=== PATIENT | female | born 1980 | race Caucasian/White ===

== ENCOUNTER → 2018-04-01 14:45 | Outpatient (CLI) | payer BC, SELFPAY ==
[2018-04-06 11:04] LABS: HPV Reflexed? NOT INDICATED
== END ==
PROVIDERS: Visit Provider Obstetrics & Gynecology
DX: Z12.4 Encounter for screening for malignant neoplasm of cervix (principal)
CPT/HCPCS: 88175; G0145

== ENCOUNTER 2018-10-29 06:02 | Day surgery (SDC) | payer BC, SELFPAY ==
--- NOTE | 2018-10-25 19:35 | PCM.HP.STD ---
History of Present Illness Date of Admission: 10/29/18 Chief Complaint: requests sterilization The patient is a 38 year old F who desires sterilization. Extensive discussions of regret with sterilization, rates of successful reversal, other contraceptive options and side effects. Past Medical History Allergies No Known Allergies Allergy (Verified 10/25/18 09:01) Home Medications: Ambulatory Orders Medication Instructions Recorded Valacyclovir HCl [Valacyclovir] 1 tab PO PRN PRN 08/06/13 Naproxen [Naprosyn] 500 mg PO BID PRN PRN 10/25/18 Smoking Status: Never smoker Tobacco Use: Non-smoker Review of Systems Constitutional: Denies: Chills, Fever, Weight Change HEENT: Denies: Difficulty Hearing, Difficulty Swallowing, Nasal bleeding, Nasal Congestion, Sore Throat Cardiovascular: Denies: Chest Pain, Palpitations Respiratory: Denies: Shortness of Breath, Wheezing Gastrointestinal: Denies: Constipation, Diarrhea, Nausea, Vomiting Genitourinary: Denies: Dysuria, Frequency, Hematuria, Incontinence, Urgency Musculoskeletal: Denies: Joint Pain, Muscle pain Skin: Denies: Lesions, Skin Changes Neurological: Denies: Focal weakness, Numbness Psychiatric: Denies: Anxiety, Depression Endocrine: Denies: Heat/ Cold Intolerance Hematologic/ Lymphatic: Denies: Easy Bleeding VTE Information - Inpt Only VTE Present on Admission: No VTE Mechan Device Prophylaxis: None VTE Pharm Prophylaxis ordered?: No Reason prophylaxis not ordered:: Procedure Not Indicated Subjective: Patient is 5 foot, 2 inches. She weighs 261 pounds. No distress. - Physical Exam General: No apparent distress, Well developed, Well nourished HEENT: PERRLA, EOMI, Normocephalic Oral: Moist Mucosa Neck: Supple Lungs: Clear to auscultation, Normal air movement, No wheeze Cardiovascular: Regular rate, Regular Rhythm Abdomen: Bowel Sounds Present, Soft, Non Tender Extremities: No edema Skin: No rashes Musculoskeletal: No Tenderness to Palpation of Joints or Extremities Neurological: Cranial nerves II-XII grossly intact Psych/Mental Status: Normal Affect Assessment/Plan 1. Request for sterilization Extensive counseling on regret and grief Counseled on rates of reversal successfulness PLan for filsche clip laparoscopic procedure 2. Obesity early ambulation SCD in surgery
[2018-10-26 17:01] LABS: Hematocrit 39.7 % (37-47); Hemoglobin 12.6 g/dl (12.0-15.0); Mean Corp Hgb Conc 31.7 g/gl (32-36); Mean Corpuscular Hgb 26.3 pg (27.0-32.0); Mean Corpuscular Volume 82.7 fL (81-99); Mean Platelet Vol. 10.7 fl (6.2-12.0); Platelet Count 299 K/mm3 (150-450); RBC Distribution Width CV 13.3 % (11.6-14.6); RBC Distribution Width SD 39.7 fl (35.1-43.9); White Blood Count 11.2 K/mm3 (4.4-11.0)
[2018-10-26 17:12] LABS: Scan Indicated on CBC? Y/N NO
[2018-10-29] VITALS (9 sets, daily range): BP systolic 108–119; BP diastolic 55–69; PULSE 58–80; RESP 16–18; TEMP 37.2–37.8; O2SAT 94–100; BMI 47.7
[2018-10-29 06:30] LABS: Internal QC Validated? YES +Cl - CLEAR BKGD; Pregnancy, Urine Negative Negative
[2018-10-29 06:40] LABS: Partial Thromboplast Time 28.6 Seconds (24.1-36.2)
--- NOTE | 2018-10-29 08:01 | PCM.OPRPT ---
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 Uterine manipulator was placed to the cervical eyes easily. Entering the abdominal cavity it was noted that there was a adhesion from the bowel to the anterior abdominal wall of a small nature along with a another piece of scar tissue from the rectouterine peritoneal layer to the anterior abdominal wall. Was noted that there was one spot of endometriosis on the fallopian tube as well as along the left colic gutter. Bilateral ovaries appeared normal. Bilateral the posterior cul-de-sac appeared to be within normal limits as well mold tooling technician: Ramos Acuna Type of Anesthesia:: General Anesthesiologist: Elmer White Special Medications: Cefotetan 3 g IV preoperatively Specimen's removed: None Drains: None Estimated Blood Loss (mL): Minimal Fluids Replaced: Lactated Ringer Description of Procedure: Patient presented in the n.p.o. status. She was placed on the operating room table and had recurrent monitoring placed. She underwent a general anesthetic once it was found to be adequate she is pleasant dorsal lithotomy position via the David stirrups. And draped in normal sterile fashion bladder had been emptied of all remaining urine which is approximately 50 cc of clear urine. The weighted speculum was placed to the vagina and the anterior lip of cervix was grasped and elevated with the uterine manipulator being placed after sounding to approximately 8 cm. A weighted speculum was placed removed from the vaginal vault. I removed gloves and change made to start the patient in a flexed position the umbilicus was tented and the 5 mm incision was made there is needle was placed through this incision and water test verified placement into the abdominal cavity. This was followed by placement of 2 and half liters of CO2 gas into the abdominal cavity and the peritoneum was then removed. This was replaced with the Visiport 5 mm scope this was placed under direct visualization hemostasis was noted. The pelvis this began to deliver it was the second millimeter incision was made at the suprapubic area under direct visualization to be noted that upon entry into the abdominal cavity the pelvic adhesive disease to the anterior abdominal wall was noted as well as areas of endometriosis's point time then incisions were assembled and enter lysis of the left fallopian tube to free this from the pelvic sidewall occurred for placement of the Filshie clips x2 on the left side suture clips x2 on the patient's right side were in place as well and hemostasis was noted to be noted there is a 1 cm fibroid in the patient's left side of the uterine anterior surface. Ablation of the endometriosis along the left colonic daughter occurred. Hemostasis was noted. Enterolysis of the abdominal scar tissue x2. Hemostasis was noted. Patient of the entire pelvic area and operative areas occurred with hemostasis being noted throughout. She was removed from the abdominal cavity. The trocar in this repeat again was removed under direct visualization. Patient was flattened and all CO2 gas was removed elevated removal of the umbilical trocar. All incisions were closed with 4-0 Monocryl in subcuticular fashion. Sponge instrument and needle counts were correct x2. Upon entry into the room as well as a second timeout occurring prior to the commencement of the surgery. Grafts/Implants Used: None - Complications None - Admit VTE Documentation VTE Present on Admission: No VTE Mechan Device Prophylaxis: SCD's VTE Pharm Prophylaxis ordered?: No Reason prophylaxis not ordered:: Procedure Not Indicated
--- NOTE | 2018-10-29 08:13 | DCINST_ITS ---
Discharge Diet: No Restrictions - increase fluid intake for 48 hours., - - increase water intake to a minimum of 120 ounces daily x 3 days Discharge Activity: Return to Normal Activity, May Drive - when you are no longer taking pain/narcotic medicines., May Shower, May Take a Tub Bath - in 7 days., - - Ambulate often the week after surgery to prevent blood clots and to adequate aerate lungs Return to work on:: 11/01/18 May shower in (days): 0 - TODAY May resume sexual activity in: 2 weeks Weight Bearing Status: Full weight bearing Lifting Restrictions: none Additional Activity Instructions:: Ambulate often the next week after surgery. Nothing in the vagina for 5 days. Call your doctor if your incision/area has: Continuous Slow Oozing, Sudden Increased Bleeding, Increased Pain/ Swelling, Increased Redness, Foul Smelling Discharge Call your doctor if you observe: Fever of 101 or Higher, Inability to urinate, Inability to have a bowel movement, Using more than one pad per hour Remove Dressing in (days):: 1 - remove bandages and leave open to air in 24 hours Cleanse incision/area with: Soap & Water Allergies/Adverse Reactions: Allergies No Known Allergies Allergy (Verified 10/25/18 09:01) Medications to take at Discharge Valacyclovir HCl [Valacyclovir] 1 tab PO PRN PRN 08/06/13 Naproxen [Naprosyn] 500 mg PO BID PRN PRN 10/25/18 Oxycodone HCl/Acetaminophen [Percocet 5/325] 1 - 2 tablet PO Q4H PRN PRN 7 Days #14 tablet 10/29/18 The following prescriptions were given: Oxycodone HCl/Acetaminophen [Percocet 5/325] 1 - 2 tablet PO Q4H PRN PRN 7 Days #14 tablet PRN Reason: Pain Primary Care Physician: Han Jacob DO [Primary Care Provider] - Test Results: Test results from this visit will be discussed in further detail at your follow- up appointment, if applicable. Please Follow Up With: Milli Mora MD - [phone] When: Call your doctor with an update in 7 days.
== END 2018-10-29 11:15 | disposition home or self-care (01) ==
LOC: SDC 06:03 → AC 06:03
PROVIDERS: Anesthesiology; Family Provider Preventive Medicine Occupational Medicine; PCP Preventive Medicine Occupational Medicine; Referring Provider Obstetrics & Gynecology; Visit Provider Obstetrics & Gynecology
PROC: (CPT 58671; principal; 2018-10-29 07:15)
DX: Z30.2 Encounter for sterilization (principal); N73.6 Female pelvic peritoneal adhesions (postinfective); N80.2 Endometriosis of fallopian tube; N80.3 Endometriosis of pelvic peritoneum; E66.9 Obesity, unspecified; Z68.42 Body mass index [BMI] 45.0-49.9, adult; R01.1 Cardiac murmur, unspecified
CPT/HCPCS: 00851; 58563; 58671; 81025; 85027; 85610; 85730; 86850; 86900; J7120; J2405

== ENCOUNTER → 2022-04-09 | Outpatient (CLI) | payer BC, SELFPAY ==
--- NOTE | 2022-04-09 15:40 | BI_ITS ---
MAMMOGRAPHY - BILATERAL SCREENING REASON FOR EXAM: Female, 41 years old. Routine annual screening examination. PERTINENT HISTORY: Grandmother with breast cancer. TECHNIQUE: Digital bilateral breast ulices (3D mammographic acquisition) in the CC and MLO projections. 2-D mediolateral oblique (MLO) and craniocaudad (CC) views of both breasts were obtained. CAD: Full Field Digital Mammography with Computer Added Detection was performed. COMPARISON: None. Baseline examination. FINDINGS: Breast Composition: The breasts are heterogeneously dense, which may obscure small masses. There are no dominant masses or suspicious calcifications. No other significant abnormalities are identified. BI/SCRN MAMM (CAD)W/ULICES BILAT IMPRESSION: Negative screening mammogram. Yearly followup mammogram recommended. (A) ASSESSMENT CATEGORY: BIRADS Category 1: Negative. A letter regarding these results will be sent to the patient by the facility within 30 days. Approximately 10% of breast cancers are not detected by mammography. A normal mammogram should not delay biopsy of a clinically suspicious abnormality. [id number] Electronically Signed: Fabian Lauren MD at 8:37 EDT ,
== END | disposition home or self-care (01) ==
PROVIDERS: PCP Preventive Medicine Occupational Medicine; Referring Provider Student in an Organized Health Care Education/Training Program; Visit Provider Student in an Organized Health Care Education/Training Program
DX: Z12.31 Encounter for screening mammogram for malignant neoplasm of breast (principal)
CPT/HCPCS: 77063; 77067

== ENCOUNTER → 2023-01-26 | Outpatient (CLI) | payer OTHER, SELFPAY ==
[2023-01-31 14:10] LABS: HPV APTIMA, High Risk Negative (Negative)
== END | disposition home or self-care (01) ==
LOC: LABSPEC 16:38
PROVIDERS: PCP Family Medicine; Referring Provider Nurse Practitioner Women's Health; Visit Provider Nurse Practitioner Women's Health
DX: Z12.4 Encounter for screening for malignant neoplasm of cervix (principal)
CPT/HCPCS: 87624; 88175; G0145

== ENCOUNTER → 2024-05-23 | Outpatient (CLI) | payer OTHER, SELFPAY ==
--- NOTE | 2024-05-23 16:55 | RAD_ITS ---
STUDY: X-RAY CHEST REASON FOR EXAM: Female, 43 years old. RULE OUT PNEUMONIA TECHNIQUE: PA and lateral views of the chest. COMPARISON: None. FINDINGS: The lungs are clear and expanded. There is no demonstrated pleural abnormality. Normal size heart. Normal mediastinum and flaco. Normal visualized pulmonary arteries. Normal visualized aortic arch and descending thoracic aorta. Normal visualized thoracic spine. Normal visualized ribs, clavicles, and shoulders. There is no demonstrated abnormality of the visualized soft tissue structures of the upper abdomen. RAD/Chest PA and Lateral IMPRESSION: Normal x-ray examination of the chest. Electronically Signed: Carlyle Loja MD at 13:47 EST ,
== END | disposition home or self-care (01) ==
LOC: MTRAD 16:31
PROVIDERS: PCP Nurse Practitioner Family; Referring Provider Nurse Practitioner Family; Visit Provider Nurse Practitioner Family
DX: R06.02 Shortness of breath (principal); R05.9 Cough, unspecified
CPT/HCPCS: 71046

== ENCOUNTER → 2024-06-16 | Outpatient (CLI) | payer OTHER, SELFPAY ==
--- NOTE | 2024-06-16 07:24 | BI_ITS ---
MAMMOGRAPHY - BILATERAL SCREENING 3-D TOMOSYNTHESIS REASON FOR EXAM: Female, 43 years old. Routine screening PERTINENT HISTORY: Grandmother with breast cancer.. TECHNIQUE: 2-D mammograms and 3-D Tomosynthesis of the breast (s) were performed. CAD was performed. COMPARISON: 04/09/2022 FINDINGS: The breast composition is composed of scattered fibroglandular density. Scattered benign calcifications are seen. No dense spiculated masses or suspicious microcalcifications are identified. No architectural distortion is identified. There is no skin thickening or retraction. There has been no significant change since the prior study. BI/SCRN MAMM (CAD)W/ULICES BILAT IMPRESSION: No mammographic signs of malignancy. Routine yearly mammograms recommended. ASSESSMENT CATEGORY: BIRADS Category 1: Negative. A letter regarding these results will be sent to the patient by the facility within 30 days. FOLLOW UP RECOMMENDATION: Yearly follow up mammogram recommended. (A) Approximately 10% of breast cancers are not detected by mammography. A normal mammogram should not delay biopsy of a clinically suspicious abnormality. Electronically Signed: Arnaud Garcia MD at 8:57 EST ,
== END | disposition home or self-care (01) ==
LOC: OPBI 07:23
PROVIDERS: PCP Nurse Practitioner Family; Referring Provider Nurse Practitioner Family; Visit Provider Nurse Practitioner Family
DX: Z12.31 Encounter for screening mammogram for malignant neoplasm of breast (principal)
CPT/HCPCS: 77063; 77067

== ENCOUNTER → 2024-12-20 | Outpatient (CLI) | payer OTHER, SELFPAY ==
[2024-12-20 16:14] LABS: Hematocrit 39.4 % (37-47); Hemoglobin 12.3 g/dL (12.0-15.0); Immature Granulocytes Count 0.140 X10^3/uL (0.0-0.0); Mean Corp Hgb Conc 31.2 g/dL (32-36); Mean Corpuscular Volume 82.6 fL (81-99); Mean Platelet Vol. 10.5 fl (6.2-12.0); NRBC Flagged by Analyzer 0 % (0-5); POSITIVE DIFFERENTIAL YES; Platelet Count 310 K/mm3 (150-450); RBC Distribution Width CV 13.9 % (11.6-14.6); RBC Distribution Width SD 41.5 fl (35.1-43.9); Red Blood Count 4.77 M/mm3 (4.2-5.4); White Blood Count 22.1 K/mm3 (4.4-11.0)
[2024-12-20 16:38] LABS: CRP 21.20 mg/L (0.0-3.0)
[2024-12-20 16:41] LABS: Differential Indicated SCAN CRITERIA MET
--- OUTSIDE RECORDS SUMMARY | 2024-12-22 03:25 | XMS RPT_ITS | CCD ---
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 ABD/ADD, SKTC + BEIGE band. Assessment Reviewed and provided handout for proper body mechanics, she demonstrated good understanding. She demonstrated compensations with kegels after fatigue with palpation. progressed with core and pelvic strengthening. Plan Planned interventions include: dry needling, education/instruction, electrical stimulation, home program, hot pack, manual therapy, neuromuscular re-education and therapeutic exercises. Goals: Goals set and discussed today. Patient will have good flexibility/muscle length of piriformis, hamstrings and hip flexors to reduce pain with mobility Patient will have improved ability to isolate and contract gluteus nae muscle to increase strength to minimum 4/5 to improve stability at hip, by week 3 Activity Limitation: Mod Oswestry score of 20% or less to improve tolerance to ADLs, by week 6 Pain: patient will report 2/10 pain or less in right LE/hip to improve ADL tolerance , patient will demonstrate good understanding of back safety and body mechanics with standing, lifting, carrying to complete work activities without increase in pain, by week 6 , patient will be able to walk unlimited distance on level surfaces without increase in pain, by week 6 Frequency and duration: 1 time(s) a week, for 4 weeks, for 4 visits . initially. Potential to achieve rehab goals is excellent Continue with core strength and flexibility progression as able. Progress with POC, as tolerated. Signatures Electronically signed by : Kaylee Oreilly PTA; Aug 24 2019 12:19PM EST (Author) Electronically signed by : Krista Garza PT; Aug 24 2019 1:27PM EST Normal [facility] PT Progress Noteon 0 PT Progress Note Therapy Diagnosis Assessed Back pain with right-sided sciatica (724.3) (M54.31) Insurance Insurance reviewed Visit number: 2 06/18 POC Patient has financial assistance/self pay Supervising PT:Lillie Chavez, PT, MPT/Krista Garza PT, DPT Referral: Carmine Jacob DO ([facility]). Subjective Patient reports: Patient reports that she felt sore after the evaluation. States that she did not complete the exercises on Thursday. Notes that R leg is worst. States that she gets sharp and shooting pain. States that she has been trying to not put all weight on the R LE. Precautions: none. Treatment Time in clinic started at 11:45 am Time in clinic ended at 12:27 pm Total time in clinic is 42 minutes. Total timed code time is 40 minutes. Therapeutic exercise (75425): timed minutes 40, units 3 . Review of previous HEP 5 min stretching: piriformis, hamstring, hip flexor 2 x 30 holds (P reps) TrA isometric plantigrade 10 x 5 hold Kegels: basic, 2-level elevator, and 10 x 10 long holds LTR 2 x 10 5 hold (N) Hip ADD iso w/ ball 2 x 10 5 hold (N Hip ABD iso w/ band Atlantic 2 x 10 5 hold (N). Provided today: education . Handout with LTR, hip ISO ABD/ADD, SKTC + BEIGE band. Assessment Reviewed current HEP this date. Patient guards with transfers onto plinth. Decreased ROM with LTR to the L with tightness in the R. Added gentle strength progression this date with no exacerbation of symptoms while in the clinic. Response to treatment: no change in pain. Plan Planned interventions include: dry needling, education/instruction, electrical stimulation, home program, hot pack, manual therapy, neuromuscular re-education and therapeutic exercises. Goals: Goals set and discussed today. Patient will have good flexibility/muscle length of piriformis, hamstrings and hip flexors to reduce pain with mobility Patient will have improved ability to isolate and contract gluteus nae muscle to increase strength to minimum 4/5 to improve stability at hip, by week 3 Activity Limitation: Mod Oswestry score of 20% or less to improve tolerance to ADLs, by week 6 Pain: patient will report 2/10 pain or less in right LE/hip to improve ADL tolerance , patient will demonstrate good understanding of back safety and body mechanics with standing, lifting, carrying to complete work activities without increase in pain, by week 6 , patient will be able to walk unlimited distance on level surfaces without increase in pain, by week 6 Frequency and duration: 1 time(s) a week, for 4 weeks, for 4 visits . initially. Potential to achieve rehab goals is excellent Continue with core strength and flexibility progression as able. Progress with POC, as tolerated. Signatures Electronically signed by : Fransisca Del Toro REPAIR SERVICE CLERK; Aug 15 2019 12:39PM EST (Author) Electronically signed by : Krista Garza, PT; Aug 18 2019 10:51AM EST Normal [employer] PT Initial Evaluationon 07-17 PT Initial Evaluation Reason For Visit Initial Evaluation . R sciatic pain. Primary Care Physician: Carmine Jacob DO ([place], [place]) Subjective Current Episode of Functional Impairment and/or Pain Date of onset: 01/13/2019 Mechanism of Injury:. 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 Patient states she had a lot of pain in right knee and then noticed dull pain in lower back that got worse. All pain has been on the right side. States she notices she stands on the right side (R hip jutted out). Patient does have urinary urgency but no leakage. Camp duties include a lot of walking, sitting at desk for paper work, lifting, carrying PSH: 6 years ago. Pain: Patient rates pain 4/10. Patient reports aching, discomfort, sharp pain and tingling. Location: R hip/leg. Her pain is constant and improving. Exacerbating Factors: motion, lifting, sitting, standing, stairs, walking. Relieving Factors: rest, heat, hot tub,foam roller. Medical Screening: No signs of domestic/child or elder abuse . Fall risk no Initial Fall Risk Screening: JEAN-PAUL has not fallen in the last 6 months. JEAN-PAUL does not have a fear of falling. Medical screening assessed. See Medical History Form. Bowel/bladder dysfunction no, just urgency. Functional Assessment and Medical Management Prior level of function: running, walking, stairs, bending knee. Functional limitations: sitting , participation in leisure activities and participation in home management . 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 Current Medical Management:. patient has been using a foam roller on her back and stretching that has helped. Patient stated goal(s) for treatment include: relieving pain , increasing mobility , reducing symptoms and returning to regular activity levels . Precautions: none. Objective Ortho standing: iliac crest height symmetrical supine leg length equal muscle length: hamstring mod deficit RLE, hip flexor mod deficit R>L, rotators mod deficit R SLR negative BLE palpation: positive over R piriformis,R iliac crest, negative along sacrum/SI joints Transverse abdomius plantigrade: patient needing tactile and verbal cues and instruction to isolate and engage hip: flex: L= 4/5 R= 4/5 abd: L=4 /5 R=4 /5 add: L=4 /5 R= 4/5 extension/glut max: 3/5 BLE knee: flex: L= 4+/5 R= 4+/5 ext: L= 4+/5 R= 4/5 ankle: DF: L= 4/5 R=4 /5 . Outcome Measures Modified Oswestry Low Back Pain Disability Index score: 34 Assessment Patient presents with tightness in hip musculature, specifically piriformis, hamstrings and hip flexors. SHe has significant weakness in glut max B LE. Patient has significant weakness in core muscle groups as well (including pelvic floor and Transverse abdominus). She is pear shaped and overweight which contributes to muscle imbalances. Patient would benefit from core strengthening and pelvic stabilization, hip strengthening and hip stretching to improve muscle imbalances. She may benefit from manual therapy to improve soft tissue mobilization and may benefit also from dry needling of the piriformis muscle. Patient was also educated on improving her body mechanics and back safety this date as she reports deficits in those. Will initiate outpatient PT once per week for 4 weeks and the reeassess progress/POC. Clinical Presentation: Stable and/or uncomplicated characteristics. Level of Complexity: low Problem List: activity limitations, ADLs/IADLs/self care skills, decreased knowledge of HEP, flexibility, gait/locomotion, pain, participation restrictions, range of motion/joint mobility and strength. Therapy Diagnosis Assessed Back pain with right-sided sciatica (724.3) (M54.31) Treatment Time in clinic started at 0915 Time in clinic ended at 1010 Total time in clinic is 55 minutes. Total timed code time is 34 minutes. Treatment Performed Today:. stretching: piriformis, hamstring, hip flexor 30 holds and isntructed for HEP TrA isometric plantigrade x10 and isntructed for HEP Kegels: basic, 2-level elevator, and 5 long holds (progress to 10)-instructed all for hEP deep abdominal breathing:isntructed for HEP body mechanics: instructed in symmetrical standing, stepping instead of twisting, abdominal bracing with ADLs, squat to lift vs bending over. Response to treatment: improved flexibility, improved posture and improved knowledge and understanding of condition. Patient was able to complete today's treatment with ease. Evaluation Code: 31238 PT Eval: Low Complexity, 19 min(s). Timed: 60453 Therapeutic Exercises, 34 min(s), 2 unit(s). Resources provided today: [facility] Access Code: [email or web address] Date printed: 08/11/2019. Plan of Care Planned interventions include: dry needling, education/instruction, electrical stimulation, home program, hot pack, manual therapy, neuromuscular re-education and therapeutic exercises. Goals: Goals set and discussed today. Patient will have good flexibility/muscle length of piriformis, hamstrings and hip flexors to reduce pain with mobility Patient will have improved ability to isolate and contract gluteus nae muscle to increase strength to minimum 4/5 to improve stability at hip, by week 3 Activity Limitation: Mod Oswestry score of 20% or less to improve tolerance to ADLs, by week 6 Pain: patient will report 2/10 pain or less in right LE/hip to improve ADL tolerance , patient will demonstrate good understanding of back safety and body mechanics with standing, lifting, carrying to complete work activities without increase in pain, by week 6 , patient will be able to walk unlimited distance on level surfaces without increase in pain, by week 6 Frequency and duration: 1 time(s) a week, for 4 weeks, for 4 visits . initially. Potential to achieve rehab goals is excellent Plan of care was developed with input and agreement by the patient. Insurance Insurance reviewed Visit number: 06/18 POC Patient has financial assistance/self pay Supervising PT:Lillie Chavez PT, MPT/Krista Garza PT, DPT Referral: Carmine Jacob DO ([facility]). Signatures Electronically signed by : Lillie Chavez PT; Aug 11 2019 10:44AM EST (Author) Normal [employer] Provider Note - ED v2on 05-15 Provider Note - ED v2 Provider Note - ED v2: Chart Review: ED NOTES ED NOTES: HPI: Patient complains of pain in her right mid and lower back with pain that radiates down into her right leg which has been going on for the last 23 months. 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 She notes some nausea and denies any vomiting fever urinary burning or frequency loss of control of bowel or bladder. Last menstrual period was approximately one week ago. She denies any Recent falls or heavy lifting. ROS: All systems are negative other than as noted in HPI. Physical Exam I have reviewed the triage vital signs. Const: Well nourished, well developed, appears stated age, no acute distress Eyes: PERRL, EOM intact, no conjunctival injection, vision grossly normal HENT: Neck supple without meningismus , Moist mucous membranes, no pharyengeal swelling or exudate CV: Regular rate and rhythm, Warm, well-perfused extremities. Chest non tender RESP: Lungs clear bilaterally, Unlabored respiratory effort GI: soft, non-tender, non-distended, no masses : MSK: No gross deformities appreciated Back: Tenderness over right scapular region and right lower back. Straight leg test negative bilaterally. Full sensation in all lower extremities. Skin: Warm, dry. 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 Sensation and motor function of extremities grossly intact. Psych: Appropriate mood and affect. HISTORY OF PRESENTING ILLNESS JEAN-PAUL is a 38 year old Female and was seen by me at 29-May-2019 13:16 for a chief complaint of back pain . Other complaints include: Amb to ED with c/o low back for several months. 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 Hurts to walk on it. (1). Triage Information: Most recent Vital Sign Value Date Temp (F): 98.4 05-29-2019 13:12 Temp (C): 36.9 05-29-2019 13:12 Heart Rate (beats/min): 74 05-29-2019 13:12 Respirations (breaths/min): 16 05-29-2019 13:12 SpO2 (%): 99 05-29-2019 13:12 BP Systolic (mm Hg): 130 05-29-2019 13:12 BP Diastolic (mm Hg): 65 05-29-2019 13:12 PAST MEDICAL HISTORY ATTESTATION: I have reviewed and confirmed nurse's/medic's notes for patient's medications, allergies, medical history, and surgical history ALLERGIES/INTOLERANCES: No Known Allergies HEALTH HISTORY: No documented data. OUTPATIENT MEDICATIONS: Home Medications Review Status for Reconciliation: N/A Med Status: N/A No documented data. 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 Patient denied any cauda equina type symptoms and had full sensation in all lower extremities. Patient's symptoms appear most consistent with low back strain and right sided sciatica and patient discharged home with prescriptions for prednisone and Flexeril. Your symptoms today appear most consistent with a strain of the muscles of the back combined with sciatic nerve pain. I recommend that you take the steroids as prescribed and use the muscle relaxers as needed. When taking the muscle relaxers, I recommend that you use caution as they do cause drowsiness so I recommend that you do not drive or work while taking these medications. I also recommend that you research [facility] physical therapy on YouTube for possible exercises however it is still very important that you follow-up with your family doctor and discuss professional physical therapy. Please avoid heavy lifting and straining until symptoms resolve and return to the nearest ER for any new or worsening concerns. CLINICAL IMPRESSION Diagnosis/Annotation: ED Dx Name:Low back pain with sciatica Code:M54.40 Dispostion: discharged Type: home ATTESTATION CRITICAL CARE TIME Is this a critically ill patient: no Electronic Signatures: Min Cary I (COMPLIANCE AUDITOR-DISPATCH OFFICER) (Signed 29-May-2019 13:23) Authored: Provider Note - ED v2 Last Updated: 29-May-2019 13:23 by Min Cary I (COMPLIANCE AUDITOR-DISPATCH OFFICER) References: 1. Data Referenced From Triage - ED 29-May-2019 13:12 [facility] Triage - EDon 05-29-2019 Triage - ED Quick Triage: The patient and/or guardian verbally acknowledges placement for services into the following (when Urgent Care Service hours are operating):emergency department Are You no Have You Given In The Last 6 Weeksno Are You Currently Breastfeedingno Chart Review: CHIEF COMPLAINT JEAN-PAUL ZARATE is a Female patient with a chief complaint of back pain. Other Complaints: Amb to ED with c/o low back for several months. 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 Hurts to walk on it. Triage Date/Time: 29-May-2019 13:12 Pain Rating (0-10): 8 = Severe Pain location: Low back down R leg Vital Signs: Temperature: 98.4F ( 36.9C) taken oral Blood Pressure: 130/65 Mean: Heart Rate: 74 Respiratory Rate: 16 Pulse Oximetry: 99% on room air, no respiratory support. Weight: 248.0 pounds. Calculated 112.4 kg. (stated) Linda Coma Scale: Best Eye Response: (E4) spontaneous Best Motor Response: (M6) obeys commands Best Verbal Response: (V5) oriented Linda Score: 15 Cough lasting greater than 3 weeks: no Travel outside of [facility]: no Allergies: no Last menstrual period: 22-May-2019 Patient has homicidal thoughts: no DEB: 4 Symptom Notes: . Symptoms Are POSITIVE For: difficulty bending and difficulty walking. Symptoms Are Negative For: bruising, flank pain, headache, hematuria, muscle cramps, neck pain, numbness and tingling. Risk Screens Suicide Risk Screen In the Past Month: Have you wished you were or wished you could go to sleep and not wake up no In the Past Month: Have you had any actual thoughts of killing yourself no In Your Lifetime: Have you ever done anything, started to do anything, or prepared to do anything to end your life no Burgess Fall Scale Screening Has the patient fallen before (or is the patient in the ED as a result of a fall) has not had a fall Does the patient have an impaired gait does not have impaired gait Is the patient cognitively impaired not cognitively impaired Interventions: Burgess Fall Interventions: *patient oriented to surroundings and call system, * patient/family falls education completed and documented, *patients fall status communicated during bedside handoff, *whiteboard updated, *mode of toileting discussed with patient, *bed in low position with brakes locked, *call light in reach, * non-skid footwear PAIN Pain Scale Used: MIQUEL Pain Rating (0-10): 8 = Severe Past Medical History: Past Medical History Reviewedyes asthma: Past Medical History, Active seasonal allergies: Past Medical History, Active Electronic Signatures: Alida Serra (RN) (Signed 29-May-2019 13:15) Authored: Triage, Past Medical History Last Updated: 29-May-2019 13:15 by Alida Serra (RN) [facility] Vital Signs Date Time Vital Sign Value Performing Clinician Facility 02-13-2024 11:37-0400 Body temperature 98.29 [degF] Addis Reynold COMPLIANCE AUDITOR.DISPATCH OFFICER Work Phone: [facility] 02-13-2024 11:37-0400 Body weight 112.7 kg Addis Pendleyuki COMPLIANCE AUDITOR.DISPATCH OFFICER Work Phone: [facility] 02-13-2024 11:37-0400 Diastolic blood pressure 80 mm[Hg] Addis Toyinlebury COMPLIANCE AUDITOR.DISPATCH OFFICER Work Phone: [facility] 02-13-2024 11:37-0400 Heart rate 78 /min Addislori Flaherty COMPLIANCE AUDITOR.DISPATCH OFFICER Work Phone: [facility] 02-13-2024 11:37-0400 Respiratory rate 16 /min Addis Pendlebury COMPLIANCE AUDITOR.DISPATCH OFFICER Work Phone: [facility] 02-13-2024 11:37-0400 SaO2% (BldA) [Mass fraction] 98 % Addislori Dealleyuki COMPLIANCE AUDITOR.DISPATCH OFFICER Work Phone: [facility] 02-13-2024 11:37-0400 Systolic blood pressure 128 mm[Hg] Addis Toyinleyuki COMPLIANCE AUDITOR.DISPATCH OFFICER Work Phone: [facility] 01-26-2023 14:18-0400 Body height 161.29 cm DO Jaquelin Markham Work Phone: [facility] 01-26-2023 14:18-0400 Body mass index (BMI) [Ratio] 45.3 kg/m2 DO Jaquelin Markham Work Phone: [facility] 01-26-2023 14:18-0400 Body weight 117.99 kg DO Jaquelin Markham Work Phone: [facility] 01-26-2023 14:18-0400 Diastolic blood pressure 82 mm[Hg] DO Jaquelin Markham Work Phone: [facility] 01-26-2023 14:18-0400 Systolic blood pressure 124 mm[Hg] DO Jaquelin Markham Work Phone: [facility] Encounters Encounter Date Encounter Type Care Provider Facility Start: 06-16-2024 ambulatory [facility] Facility:[facility] Start: 05-23-2024 End: 05-23-2024 ambulatory [facility] Facility:[facility] Start: 02-13-2024 End: 02-13-2024 ambulatory SELF Facility:[facility] Start: 02-13-2024 End: 02-13-2024 Office outpatient visit 15 minutes Addis Flaherty APRN.CNP Work Phone: [facility] Comment on above: Rash (Primary Dx); Viral illness Start: 01-26-2023 End: 01-26-2023 ambulatory DO Jaquelin Markham Work Phone: [facility] Work Phone: Start: 01-26-2023 End: 01-26-2023 Patient encounter procedure DO Jaquelin Markham Work Phone: [facility]-Laboratory, Specimen Work Phone: Start: 01-26-2023 End: 01-26-2023 Patient encounter procedure DO Jaquelin Markham Work Phone: [facility] [place] Work Phone: Start: 04-09-2022 End: 04-09-2022 ambulatory [facility] Work Phone: Start: 04-09-2022 End: 04-09-2022 Patient encounter procedure [facility]Outpatient [facility] Start: 09-05-2019 Patient encounter procedure [facility] Work Phone: Start: 08-24-2019 Patient encounter procedure [facility] Work Phone: Start: 08-15-2019 Patient encounter procedure [facility] Work Phone: Start: 08-11-2019 Patient encounter procedure [facility] Work Phone: Procedures Date Procedure Procedure Detail Performing Clinician Start: 04-09-2022 Screening mammography Plan of Treatment Date Care Activity Detail Author Start: 02-14-2024 Influenza vaccination Influenza Vacc ine (#1) [facility] Start: 02-13-2023 Covid-19 Vaccine ( season) Covid-19 Vaccine ( season) [facility] Start: 01-26-2023 Liquid based cervica l cytology screening [facility] Start: 2019 Screening for malign ant neoplasm of breast Mammogram Screening [facility] Start: 2000 Screening for malign ant neoplasm of cervix Cervical Cancer Screening [facility] Start: 1998 Hepatitis B Vaccine (1 of 3 - 19+ 3-dose series) Hepatitis B Vaccine (1 of 3 - 19+ 3-dose series) [facility] Start: 1998 Urine microalbumin profile DTaP,Tdap,Td Vaccine (1 - Tdap) [facility] Start: 1997 Anxiety Screening Anxiety Screening [facility] Start: 1997 Depression Screening Depression Scre ening [facility] Start: 1997 Hepatitis C screening Hepatitis C Sc reening [facility] Start: 1997 HIV screening HIV Screening [facility] MG Breast - bilatera l Screening [facility] Path report.final Dx Spec [facility] Payers Date Payer Category Payer Self-pay [id number] 2023 Private Health Insurance [facility] [employer] [id number] 2023-Present [phone] [address] [place] [address] O [id number] 2023 Private Health Insurance [id number] Unknown RAINA [id number] Unknown [id number] Unknown [id number] Unknown [id number] Social History Date Type Detail Facility Assertion [facility] Work [facility]: Start: 06-11-2021 End: 01-26-2023 Tobacco smoking status NHIS Unknown if ever smoked [facility] Start: 10-25-2018 Non-smoker [facility] Start: 1980 Sex Assigned At Female [employer] [facility] Start: 1980 Sex assigned at Not on file [facility] Gender identity Not on file [facility] Medical Equipment Procedure Code Equipment Code Equipment Origin al Text Equipment Identifier Dates Laparoscopic occlusion of both fallopian tubes CLIP,FILSHIE SYSTEM FDA Start: 10-29-2018 Laparoscopic occlusion of both fallopian tubes CLIP,FILSHIE SYSTEM FDA Start: 10-29-2018 Laparoscopic occlusion of both fallopian tubes CLIP,FILSHIE SYSTEM FDA Start: 10-29-2018 Laparoscopic occlusion of both fallopian tubes CLIP,FILSHIE SYSTEM FDA Start: 10-29-2018 Functional Status Date Assessment Result Facility NEGATED: Highlighted row Functional performance Functional status health issues are not documented [facility] Work Phone: Mental Status Date Assessment Result Facility NEGATED: Highlighted row Cognitive function [Interpretation] Cognitive status health issues are not documented [facility] Work Phone: Progress note 02-13-2024 Note Date & Type Note Facility 02-13-2024 Note HNO ID: [id number] Author: ADDIS FLAHERTY APRN.DISPATCH OFFICER Service: ? Author Type: Nurse Practitioner Type: Progress Notes Filed: 02/13/2024 12:00 Note Text: Subjective HPI Nontoxic-appearing female presents urgent care chief complaint rash. Duration of symptoms 10 days. Associated symptoms pruritic rash. Has nasal congestion headache as well. That has been present for the last 4 to 5 days. Son and sick similar signs symptoms. Rash started shortly after cutting firewood. No recent medication changes antibiotic use. Denies any fever body aches chills productive cough chest pain shortness of breath pleuritic pain hemoptysis nausea vomiting abdominal pain change in bowel or bladder habits. Past medical history prescription medication use and allergies reviewed. .Patient presents with: Rash: itching x 10 days, head congestion x 4-5 days No past medical history on file. No past surgical history on file. ALLERGIES Seasonal Allergies MEDICATIONS albuterol HFA (VENTOLIN HFA) 90 mcg/actuation inhaler Inhale 2 Puffs as instructed every 4 hours as needed for Wheezing/Shortness of Breath. (Patient not taking: Reported on 02/13/2024) codeine-guaiFENesin (ROBITUSSIN AC) 10-100 mg/5 mL syrup Take 5-10 mL by mouth four times daily as needed for Cough. May cause drowsiness. (Patient not taking: Reported on 02/13/2024) No family history on file. BP 128/80 Pulse 78 Temp 36.8 ?C (98.3 ?F) Resp 16 Wt 112.7 kg (248 lb 7.3 oz) SpO2 98% Review of Systems Constitutional: Negative for chills, fever and malaise/fatigue. HENT: Positive for congestion. Negative for ear discharge, ear pain, sinus pain and sore throat. Eyes: Negative for blurred vision, pain, discharge and redness. Respiratory: Negative for cough, hemoptysis, sputum production, shortness of breath, wheezing and stridor. Cardiovascular: Negative for chest pain. Gastrointestinal: Negative for abdominal pain, diarrhea, nausea and vomiting. Musculoskeletal: Negative for myalgias. Skin: Positive for itching and rash. Neurological: Negative for dizziness and headaches. Objective Physical Exam Constitutional: General: She is not in acute distress. Appearance: She is not diaphoretic. HENT: Head: Normocephalic. Jaw: No trismus, tenderness, swelling or pain on movement. Right Ear: Tympanic membrane, ear canal and external ear normal. Left Ear: Tympanic membrane, ear canal and external ear normal. Nose: Rhinorrhea present. Mouth/Throat: Mouth: Mucous membranes are moist. Pharynx: Oropharynx is clear. Uvula midline. No pharyngeal swelling, oropharyngeal exudate, posterior oropharyngeal erythema or uvula swelling. Eyes: Conjunctiva/sclera: Conjunctivae normal. Pupils: Pupils are equal, round, and reactive to light. Cardiovascular: Rate and Rhythm: Normal rate and regular rhythm. Heart sounds: Normal heart sounds. Pulmonary: Effort: Pulmonary effort is normal. No tachypnea, accessory muscle usage or respiratory distress. Breath sounds: Normal breath sounds. No stridor. No wheezing, rhonchi or rales. Abdominal: General: There is no distension. Palpations: Abdomen is soft. Tenderness: There is no abdominal tenderness. There is no guarding or rebound. Musculoskeletal: Cervical back: Normal range of motion and neck supple. No edema, erythema, rigidity or tenderness. No pain with movement. Normal range of motion. Lymphadenopathy: Cervical: No cervical adenopathy. Skin: General: Skin is warm and dry. Comments: Healing macular papular rash noted highlighted area. Some coalescing lesions. No vesicles noted. No evidence secondary bacterial faction or lymphatic streaking. Neurological: Mental Status: She is alert and oriented to person, place, and time. ASSESSMENT/PLAN: 1. Rash - ICD9: 782.1, ICD10: R21 (primary diagnosis) 2. Viral illness - ICD9: 079.99, ICD10: B34.9 Diagnosed with rash of viral illness. Steroid cream sent to pharmacy. Do not use on areas of thin skin. Patient was educated on supportive therapies. Patient will follow up with primary care provider as needed. Patient was instructed to immediately proceed to emergency room for any new, worsening, or symptoms lasting longer than anticipated. The patient's clinical presentation is otherwise unremarkable at this time. Based on exam and clinical finding, the patient is stable for discharge. Plan of care was discussed with patient. Patient verbalizes understanding and agrees to plan of care. This note was generated using GTRAN software. It may contain errors in wording, punctuation, or spelling. Addis Flaherty APRN.AUNDREA [facility] History of Present illness Narrative 02-13-2024 Addis Flaherty APRN.AUNDREA - 02/13/2024 11:41 AM EDT Note Date & Type Note Facility 02-13-2024 History of Presen t illness Narrative Images from the original note were not included. Subjective HPI Nontoxic-appearing female presents urgent care chief complaint rash. Duration of symptoms 10 days. Associated symptoms pruritic rash. Has nasal congestion headache as well. That has been present for the last 4 to 5 days. Son and sick similar signs symptoms. Rash started shortly after cutting firewood. No recent medication changes antibiotic use. Denies any fever body aches chills productive cough chest pain shortness of breath pleuritic pain hemoptysis nausea vomiting abdominal pain change in bowel or bladder habits. Past medical history prescription medication use and allergies reviewed. .Patient presents with: Rash: itching x 10 days, head congestion x 4-5 days No past medical history on file. No past surgical history on file. ALLERGIES Seasonal Allergies MEDICATIONS albuterol HFA (VENTOLIN HFA) 90 mcg/actuation inhaler Inhale 2 Puffs as instructed every 4 hours as needed for Wheezing/Shortness of Breath. (Patient not taking: Reported on 02/13/2024) codeine-guaiFENesin (ROBITUSSIN AC) 10-100 mg/5 mL syrup Take 5-10 mL by mouth four times daily as needed for Cough. May cause drowsiness. (Patient not taking: Reported on 02/13/2024) No family history on file. BP 128/80 Pulse 78 Temp 36.8 C (98.3 F) Resp 16 Wt 112.7 kg (248 lb 7.3 oz) SpO2 98% Review of Systems Constitutional: Negative for chills, fever and malaise/fatigue. HENT: Positive for congestion. Negative for ear discharge, ear pain, sinus pain and sore throat. Eyes: Negative for blurred vision, pain, discharge and redness. Respiratory: Negative for cough, hemoptysis, sputum production, shortness of breath, wheezing and stridor. Cardiovascular: Negative for chest pain. Gastrointestinal: Negative for abdominal pain, diarrhea, nausea and vomiting. Musculoskeletal: Negative for myalgias. Skin: Positive for itching and rash. Neurological: Negative for dizziness and headaches. Objective Physical Exam Constitutional: General: She is not in acute distress. Appearance: She is not diaphoretic. HENT: Head: Normocephalic. Jaw: No trismus, tenderness, swelling or pain on movement. Right Ear: Tympanic membrane, ear canal and external ear normal. Left Ear: Tympanic membrane, ear canal and external ear normal. Nose: Rhinorrhea present. Mouth/Throat: Mouth: Mucous membranes are moist. Pharynx: Oropharynx is clear. Uvula midline. No pharyngeal swelling, oropharyngeal exudate, posterior oropharyngeal erythema or uvula swelling. Eyes: Conjunctiva/sclera: Conjunctivae normal. Pupils: Pupils are equal, round, and reactive to light. Cardiovascular: Rate and Rhythm: Normal rate and regular rhythm. Heart sounds: Normal heart sounds. Pulmonary: Effort: Pulmonary effort is normal. No tachypnea, accessory muscle usage or respiratory distress. Breath sounds: Normal breath sounds. No stridor. No wheezing, rhonchi or rales. Abdominal: General: There is no distension. Palpations: Abdomen is soft. Tenderness: There is no abdominal tenderness. There is no guarding or rebound. Musculoskeletal: Cervical back: Normal range of motion and neck supple. No edema, erythema, rigidity or tenderness. No pain with movement. Normal range of motion. Lymphadenopathy: Cervical: No cervical adenopathy. Skin: General: Skin is warm and dry. Comments: Healing macular papular rash noted highlighted area. Some coalescing lesions. No vesicles noted. No evidence secondary bacterial faction or lymphatic streaking. Neurological: Mental Status: She is alert and oriented to person, place, and time. ASSESSMENT/PLAN: 1. Rash - ICD9: 782.1, ICD10: R21 (primary diagnosis) 2. Viral illness - ICD9: 079.99, ICD10: B34.9 Diagnosed with rash of viral illness. Steroid cream sent to pharmacy. Do not use on areas of thin skin. Patient was educated on supportive therapies. Patient will follow up with primary care provider as needed. Patient was instructed to immediately proceed to emergency room for any new, worsening, or symptoms lasting longer than anticipated. The patient's clinical presentation is otherwise unremarkable at this time. Based on exam and clinical finding, the patient is stable for discharge. Plan of care was discussed with patient. Patient verbalizes understanding and agrees to plan of care. This note was generated using GTRAN software. It may contain errors in wording, punctuation, or spelling. Addis Flaherty APRN.AUNDREA documented in this encounter [facility] Evaluation note Note Date & Type Note Facility Evaluation note No assessment information availa ble [facility] Work Phone: Evaluation note Note Date & Type Note Facility Evaluation note Diagnosis Onset Date Genital herpes acute Encounter for routine gyneco logical examination noneactive [facility] Work Phone: Evaluation note Note Date & Type Note Facility Evaluation note Diagnosis Rash- Primary Rash and other nonspecific skin eruption Viral illness Unspecified viral infection, in conditions classified elsewhere and of unspecified site documented in this encounter [facility] Summary Purpose Family History No Family History Records Found Relationship Condition Age at Onset Recorded Date/T alla grandmother Malignant neoplasm of breast Unknown Malignant neoplasm of uterus Unknown grandfather Cardiac disease Unknown Myocardial infarction Unknown father Kidney disorder Unknown grandmother Cardiac disease Unknown Advance Directives No Advanced Directives Records Found Advance Directive Response Recorded Date/ Time Living Will No October 25, 2018 9 :03am Power of Facing Machine Operator No October 25, 2018 9:03am Chief Complaint and Reason for Visit Chief Complaint SCREENING 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) Reason for Visit Genital herpes Encounter for routine gynecological examination Additional Source Comments INFORMATION SOURCE (unrecogn ized section and content) DATE CREATED AUTHOR 10/08/2019 [employer] DATE CREATED AUTHOR AUTHOR'S ORGANIZ ATION 01/06/2020 [facility] DATE CREATED AUTHOR AUTHOR'S ORGANIZ ATION 02/13/2024 [facility] DATE CREATED AUTHOR AUTHOR'S ORGANIZ ATION 06/28/2024 [facility] Goals (unrecognized section and content) Goals may be documented in a n alternate sectionGoals may be documented in an alternate section Care Teams (unrecognized sec tion and content) Team Status: Active Member Role Status Dates Dr. Madina Jacob , DO Family Provider Active Jaquelin Markham , DO Primary Care Provider Active Team Status: Inactive Member Role Status Dates Jaquelin Markham , Primary Care Provider, Referring Provider Active Erica Murphy FABRIC DESIGNER, FABRIC DESIGNER-C Attending Provider Active Team Status: Inactive Member Role Status Dates Jaquelin M Rashi , Primary Care Provider Active Erica Murphy FABRIC DESIGNER, FABRIC DESIGNER-C Attending Provider, Referring Provider Active Flat Surfacer Jewel Relationship Specialty Start Date End Date Madina Jacob DO PCP - General Family Medicine 11/01/15 Source Comments (unrecognize d section and content) In the event this informatio n is protected by the Federal Confidentiality of Alcohol and Drug Abuse Patient Records regulations: The Federal rules restrict any use of the information to criminally investigate or prosecute any alcohol or drug abuse patient.[facility] Reason for Visit (unrecogniz ed section and content) Reason Comments Rash itching x 10 days, h ead congestion x 4-5 days FOR RECORDS PERTAINING TO PATIENTS WHO ARE OR HAVE BEEN ENROLLED IN A CHEMICAL DEPENDENCY/SUBSTANCEABUSE PROGRAM, SOME INFORMATION MAY BE OMITTED. This clinical summary was aggregated from multiple sources. Caution should be exercised in using it in the provision of clinical care. This summary normalizes information from multiple sources, and as a consequence, information in this document may materially change the coding, format and clinical context of patient data. In addition, data may be omitted in some cases. CLINICAL DECISIONS SHOULD BE BASED ON THE PRIMARY CLINICAL RECORDS. [email or web address] provides no warranty or guarantee of the accuracy or completeness of information in this document.
== END | disposition home or self-care (01) ==
LOC: BFHLAB 13:52
PROVIDERS: PCP Nurse Practitioner Family; Visit Provider Nurse Practitioner Family
DX: R19.7 Diarrhea, unspecified (principal)
CPT/HCPCS: 36415; 85025; 85652; 86140

== ENCOUNTER → 2024-12-20 | Outpatient (CLI) | payer OTHER, SELFPAY | END | disposition home or self-care (01) | LOC: LAB.FUTURE 20:57 → LABSPEC 22:04 | PROVIDERS: PCP Nurse Practitioner Family; Referring Provider Nurse Practitioner Family; Visit Provider Nurse Practitioner Family | DX: R19.7 Diarrhea, unspecified (principal) | CPT/HCPCS: 83630; 87177; 87209; 87493; 87506 ==